=== PATIENT | female | born 1960 | race Caucasian/White ===

== ENCOUNTER 2017-09-08 06:08 | Day surgery (SDC) | payer OTHER ==
[2017-09-08] MEDS ORDERED: CEFAZOLIN 1 GM INJ (07:00)
[2017-09-08] MEDS ORDERED: LIDOCAINE 2% (SDV) 5 ML INJ (07:54)
[2017-09-08] MEDS ORDERED: MEPERIDINE 100 MG INJ (07:54)
[2017-09-08] MEDS ORDERED: NEOSTIGMINE 3 MG/3 ML SYRINGE (07:54)
[2017-09-08] MEDS ORDERED: PROPOFOL 20 ML (07:54)
[2017-09-08] MEDS ORDERED: GLYCOPYRROLATE 0.4 MG INJ ×2 (07:54→08:52)
[2017-09-08] MEDS ORDERED: SUCCINYLCHOLINE CHLORIDE 100 MG/5 ML SYG IV (07:54)
[2017-09-08] MEDS ORDERED: ROCURONIUM 50 MG INJ (07:54)
[2017-09-08] MEDS ORDERED: MIDAZOLAM 1 MG/ML 2 ML INJ IV (09:00)
[2017-09-08] MEDS ORDERED: DIPHENHYDRAMINE 50 MG INJ IV (09:00)
[2017-09-08] MEDS ORDERED: HYDROmorphONE 1 MG/5 ML IV SYRINGE IV (09:00)
[2017-09-08] MEDS ORDERED: MEPERIDINE 25 MG INJ IV (09:00)
[2017-09-08] MEDS ORDERED: ACETAMINOPHEN 325 MG TAB PO (09:00)
[2017-09-08] MEDS ORDERED: hydrALAzine 20 MG INJ IV (09:00)
[2017-09-08] MEDS ORDERED: LABETALOL HCL 20MG INJ IV (09:00)
[2017-09-08] MEDS ORDERED: EPHEDrine SULFATE 50 MG/5 ML SYG IV (09:00)
[2017-09-08] MEDS ORDERED: FENTAnyl 50 MCG/ML VIAL IV ×3 (09:00)
[2017-09-08] MEDS ORDERED: ONDANSETRON 4 MG INJ IV (09:00)
[2017-09-08] MEDS ORDERED: OXYCODONE/ACETAMINOPHEN (5/325) TAB PO ×2 (09:00)
[2017-09-08] MEDS: METOCLOPRAMIDE 10 MG INJ IV (09:17)
[2017-09-08] MEDS: HYDROmorphONE 1 MG/5 ML IV SYRINGE IV ×2 (09:17→09:33)
== END 2017-09-08 10:54 | disposition home or self-care (01) ==
LOC: SDS 06:08
DX: R10.2 Pelvic and perineal pain (principal); I10 Essential (primary) hypertension; E03.9 Hypothyroidism, unspecified
CPT/HCPCS: 58558; 84702; 86850; 86900; 86901; 88305